=== PATIENT | female | born 1965 | race Caucasian/White ===

== ENCOUNTER 2019-08-01 11:34 | Emergency (ER) | payer OTHER ==
[~2019-08-01] VITALS: Ht 149.9 cm; Wt 70.5 kg
[~2019-08-01 11:34] MED LIST: ACET-49 PO; ALBU8HFA IH; BECL8.7A6 IH; BUPR75 PO; CELE200 PO; GABA-531 PO; HYDR25TA PO; LORA10TA7 PO; MELO-107 PO; OMEP10 PO; PARO20TA24 PO
[2019-08-01 11:52] LABS: GLUCOSE,POINT OF CARE 175 MG/DL (70-110)
[2019-08-01] MEDS ORDERED: TOPI25 PO (11:52)
[2019-08-01] MEDS ORDERED: EMPA10TA PO (11:52)
[2019-08-01] MEDS ORDERED: RANO500T3 PO (11:52)
[2019-08-01] MEDS ORDERED: GLIP5 PO (11:52)
[2019-08-01] MEDS ORDERED: METF-960 PO (11:52)
[2019-08-01] MEDS ORDERED: METO-558 PO (11:52)
[2019-08-01] MEDS ORDERED: VERA180SR PO (11:52)
[2019-08-01] MEDS ORDERED: IBUPROFEN 400 MG TABLET PO ONE (13:30)
[2019-08-01 15:55] VITALS: BP 135/78
== END 2019-08-01 15:56 | disposition home or self-care (01) ==
LOC: EMS 11:35
DX: S63.91XA Sprain of unspecified part of right wrist and hand, initial encounter (principal); S63.92XA Sprain of unspecified part of left wrist and hand, initial encounter; F32.9 Major depressive disorder, single episode, unspecified; J45.909 Unspecified asthma, uncomplicated; Z88.8 Allergy status to other drugs, medicaments and biological substances; Z79.84 Long term (current) use of oral hypoglycemic drugs; Z79.899 Other long term (current) drug therapy; X58.XXXA Exposure to other specified factors, initial encounter; Y93.89 Activity, other specified; Y92.89 Other specified places as the place of occurrence of the external cause; Y99.8 Other external cause status

== ENCOUNTER 2022-01-17 10:41 | Emergency (ER) | payer OTHER ==
[~2022-01-17] VITALS: Ht 149.9 cm; Wt 70.5 kg
[~2022-01-17 10:41] MED LIST changes: -BUPR75 PO; +EMPA10TA PO; +GABA-1181 PO; -GABA-531 PO; +GLIP5TAB12 PO; -HYDR25TA PO; +HYDR25TA2 PO; -LORA10TA7 PO; -MELO-107 PO; +METF-1211 PO; +METO-558 PO; -OMEP10 PO; -PARO20TA24 PO; +RANO500T3 PO; +TOPI25 PO; +VERA180T61 PO
[2022-01-17 11:32] LABS: BASOPHILS % (AUTO) 0.9 % (0.0-2.0); HEMATOCRIT 40.2 % (36-46); HEMOGLOBIN 13.7 g/dL (12.0-16.0); LYMPHOCYTES # (AUTO) 1.6 K/uL (1.0-4.8); LYMPHOCYTES % (AUTO) 30.6 % (22.0-44.0); MEAN CORPUSCULAR HEMOGLOBIN 28.1 pg (26.0-34.0); MEAN CORPUSCULAR HGB CONC 34.2 G/dL (31.0-37.0); MEAN CORPUSCULAR VOLUME 82 fL (80-100); MONOCYTES # (AUTO) 0.4 K/uL (0.1-1.0); NEUTROPHILS # (AUTO) 3.1 K/uL (1.8-7.7); NEUTROPHILS % (AUTO) 59.5 % (40.0-70.0); PLATELET COUNT (AUTO) 282 K/uL (150-450); RED BLOOD CELL COUNT(AUTO) 4.89 MIL/uL (4.00-5.20); RED CELL DISTRIBUTION WIDTH 13.2 % (11.5-14.5)
[2022-01-17 11:46] LABS: ANION GAP 10 mmol/L (8-16); CALCIUM, TOTAL 9.5 mg/dL (8.8-10.5); CARBON DIOXIDE 26 mmol/L (22-29); CHLORIDE 104 mmol/L (98-107); GLUCOSE,RANDOM 168 mg/dL (70-110); POTASSIUM 3.8 mmol/L (3.5-5.1); SODIUM SERUM 140 mmol/L (136-145); UREA NITROGEN, BLOOD 17 mg/dL (7-18)
[2022-01-17 11:47] LABS: GLOMERULAR FILTR. RATE CALC > 60 mL/min (>60)
[2022-01-17 11:51] LABS: ALANINE AMINOTRANSFERASE 36 U/L (12-78); ALBUMIN 3.9 g/dL (3.4-5.0); ALKALINE PHOSPHATASE 90 U/L (46-116); ASPARTATE AMINOTRANSFERASE 13 U/L (15-37); BILIRUBIN,TOTAL 0.2 mg/dL (0.1-1.0); TOTAL PROTEIN, SERUM 7.6 g/dL (6.4-8.2)
[2022-01-17 11:57] LABS: INR 0.9 (0.9-1.1)
[2022-01-17 12:20] VITALS: BP 137/88
[2022-01-17] MEDS ORDERED: SODIUM CHLORIDE 0.9% 1,000 ML IV ONE (12:30)
[2022-01-17] MEDS ORDERED: ACETAMINOPHEN 500 MG TABLET PO ONE (12:30)
[2022-01-17] MEDS ORDERED: KETOROLAC TROMETHAMINE 30 MG/ML VIAL IVP ONE (12:30)
== END 2022-01-17 14:11 | disposition home or self-care (01) ==
LOC: EMS 10:41
DX: G43.909 Migraine, unspecified, not intractable, without status migrainosus (principal); M19.90 Unspecified osteoarthritis, unspecified site; J45.909 Unspecified asthma, uncomplicated; F32.A Depression, unspecified; Z86.2 Personal history of diseases of the blood and blood-forming organs and certain disorders involving the immune mechanism; Z87.19 Personal history of other diseases of the digestive system; Z87.898 Personal history of other specified conditions; Z98.890 Other specified postprocedural states; Z88.8 Allergy status to other drugs, medicaments and biological substances
CPT/HCPCS: 36415; 70450; 71045; 80053; 84484; 85025; 85610; 85730; 93005; 96361; 96374; 99285; J1885; J7030